=== PATIENT | female | born 1945 | race Caucasian/White ===

== ENCOUNTER 2020-08-02 14:41 | Emergency (ER) | payer OTHER, SELFPAY ==
[2020-08-02 14:55] VITALS: BP 131/69; PULSE 75; RESP 13; O2SAT 98; BMI 23.0
--- NOTE | 2020-08-02 15:38 | DI.US.S_ITS ---
PROCEDURE: US PERIPH VENOUS LOW EXTREM RT INDICATIONS: rule out dvt,recent right hip dislocation TECHNIQUE: Real-time imaging, as well as color and pulse Doppler interrogation, were performed of the lower extremity deep veins from the inguinal ligament to the popliteal fossa. COMPARISON: None. FINDINGS: The common femoral, femoral and popliteal veins are normally compressible, and free of intraluminal thrombus. Color and pulse Doppler demonstrate normal phasic intraluminal flow. There is normal augmentation response to distal compression maneuver. IMPRESSION: No DVT found. Dictated by: Christiano Braxton M.D. on 08/02/2020 at 16:52 Approved by: Christiano Braxton M.D. on 08/02/2020 at 16:53
--- NOTE | 2020-08-02 16:20 | ED.EXTPRO ---
HPI - Extremity Problem <MICHELLE Duggan - Last Filed: 08/02/20 20:53> General Chief complaint: Extremity Problem,Nontraumatic Stated complaint: suspected blood clot rt leg Time Seen by Provider: 08/02/20 15:32 Source: patient Mode of arrival: Ambulatory Limitations: no limitations History of Present Illness HPI Narrative: 75-year-old female with a history of back surgeries and a DVT, presents to the emergency department for right lower leg swelling. She states approximately a week ago she suffered a right hip dislocation, the hip was relocated at [facility] in [place], a knee brace was placed on her knee to help prevent hip dislocation. Patient had a physical therapy appointment yesterday and the brace was removed, she noticed some swelling below the area of the brace. Patient did have intermittent calf pain earlier today which has now resolved. She states her providers were concerned for a DVT. Patient denies any other symptoms such as chest pain, shortness of breath, dizziness, nausea, vomiting, diarrhea, further trauma to the leg, redness, or any other concerns. Related Data Previous Rx's Medication Instructions Recorded warfarin [Coumadin] 5 mg PO QDAY #90 tab 09/12/16 hydroxyzine HCl 25 mg PO SEE INSTRUCTIONS #60 tab 09/24/16 tramadol 0 mg PO BID PRN #60 tab 09/24/16 levothyroxine 50 mcg PO QAM #90 tab 10/07/16 lidocaine [Lidoderm] 5 ea TP SEE INSTRUCTIONS #30 patch 10/07/16 lithium carbonate 300 mg PO BID #180 tab 10/07/16 triamterene-hydrochlorothiazid 1 cap PO QDAY #30 cap 10/07/16 [Dyazide] prednisone 5 mg PO QDAY #30 tab 10/08/16 potassium chloride [K-Tab] 20 meq PO QDAY #90 tab 10/29/16 Allergies Allergy/AdvReac Type Severity Reaction Status Date / Time No Known Drug Allergies Allergy Verified 08/02/20 15:02 Review of Systems <MICHELLE Duggan - Last Filed: 08/02/20 20:53> Review of Systems Narrative: REVIEW OF SYSTEMS: GENERAL: Denies fever or chills. HENT: No head trauma. CARDIOVASCULAR: No chest pain or syncope. RESPIRATORY: No shortness of breath or cough. GASTROINTESTINAL: No nausea, vomiting, diarrhea, or constipation. MUSCULOSKELETAL: Complains of right leg swelling, see HPI. INTEGUMENTARY: No rash, lesions, or pruritus. NEURO: No numbness, tingling. PSYCH: No behavior or mood changes. Patient History <MICHELLE Duggan - Last Filed: 08/02/20 20:53> Medical History No significant medical problems (Acute) Social History Smoking Status: Unknown if ever smoked Smoking Status: Unknown if ever smoked alcohol intake frequency: holidays/special occasions only Substance Use Type: does not use Exam <MICHELLE Duggan - Last Filed: 08/02/20 20:53> Initial Vital Signs Initial Vital Signs: Vital Signs Pulse Rate 75 08/02/20 14:55 Respiratory Rate 13 08/02/20 14:55 Blood Pressure 131/69 08/02/20 14:55 Pulse Oximetry 98 08/02/20 14:55 PHYSICAL EXAMINATION: GENERAL: Well groomed, alert, and cooperative. Answers questions promptly and appropriately. Vital signs noted. HENT: Normocephalic, atraumatic. EYES: Symmetrical, sclera white, no periorbital swelling. CARDIOVASCULAR: Regular rate. RESPIRATORY: Normal respiratory rate, trachea midline, airway patent. No stridor, nasal flaring or accessory muscle use. MUSCULOSKELETAL: Slight increased swelling noted to right lower ankle, no pain with palpation to hip, knee, or ankle. Negative Homans sign. No pain with palpation to calf. Normal gait and coordination. Equal tone and mass bilaterally. To healing wounds noted to lower ankle, no surrounding erythema or signs of infection. EXTREMITIES: CMS intact. No pedal edema. SKIN: Warm, dry, soft, appropriate color for ethnicity. No lesions, rashes, or wounds. NEURO: Alert and Oriented X 3. No sensory deficits. PSYCH: Appropriate affect and mood. <Reed Olguin MD - Last Filed: 08/04/20 07:56> Initial Vital Signs Initial Vital Signs: Vital Signs Pulse Rate 75 08/02/20 14:55 Respiratory Rate 13 08/02/20 14:55 Blood Pressure 131/69 08/02/20 14:55 Pulse Oximetry 98 08/02/20 14:55 Course <MICHELLE Duggan - Last Filed: 08/02/20 20:53> Orders Ordered: ED Orders 08/02/20 15:38 US periph venous low extrem rt Stat 08/02/20 16:06 D Dimer Stat Vital Signs Vital signs: Vital Signs - 8 hr 08/02/20 14:55 08/02/20 17:12 Pulse Rate 75 84 Respiratory Rate 13 14 Blood Pressure 131/69 152/74 H Pulse Oximetry 98 97 <Reed Olguin MD - Last Filed: 08/04/20 07:56> Orders Ordered: ED Orders 08/02/20 15:38 US periph venous low extrem rt Stat 08/02/20 16:06 D Dimer Stat Vital Signs Vital signs: Vital Signs - 8 hr 08/02/20 14:55 08/02/20 17:12 Pulse Rate 75 84 Respiratory Rate 13 14 Blood Pressure 131/69 152/74 H Pulse Oximetry 98 97 MDM - Extremity (Nontraumatic) <MICHELLE Duggan - Last Filed: 08/02/20 20:53> Medical Records Attestation: I reviewed the patient's medical records. Lab Data Attestation: I reviewed the patient's lab results. Labs: Lab Results 08/02/20 Range/Units 16:06 D-Dimer 479 H (<230) ng/mL Imaging Data US - DVT: Radiologist's Impression: [place] [address] Ultrasound Report Signed Patient: Suly Manning BMR#: [id number] : 5Acct:[id number] Age/Sex: 75 / FDate of Service: 08/02/20 Loc: ED Accession Number: [id number] Procedure: US periph venous low extrem rt Ordering Provider: Karina Levine PROCEDURE: US PERIPH VENOUS LOW EXTREM RT INDICATIONS: rule out dvt,recent right hip dislocation TECHNIQUE: Real-time imaging, as well as color and pulse Doppler interrogation, were performed of the lower extremity deep veins from the inguinal ligament to the popliteal fossa. COMPARISON: None. FINDINGS: The common femoral, femoral and popliteal veins are normally compressible, and free of intraluminal thrombus. Color and pulse Doppler demonstrate normal phasic intraluminal flow. There is normal augmentation response to distal compression maneuver. IMPRESSION: No DVT found. Dictated by: Christiano Braxton M.D. on 08/02/2020 at 16:52 Approved by: Christiano Braxton M.D. on 08/02/2020 at 16:53 [facility] Narrative Medical decision making narrative: 75-year-old female presents to the emergency department for right leg swelling after right hip dislocation and reduction approximately week ago. Patient has a history of DVT. I suspect slight swelling is most likely caused by recent dislocation and recent physical therapy most likely increasing inflammation and therefore increasing dependent swelling. Less likely DVT given negative ultrasound. However, I recommended follow-up with PCP his D-dimer was elevated an ultrasound was negative, we discussed that sometimes ultrasound is repeated within a week. Additionally, exam is reassuring as calf was not tender. Return precautions given for new or worsening symptoms. Patient denied any other concerning symptoms such as shortness of breath or cough. Patient was hemodynamically stable. Patient agreed to plan of care verbalized understanding. <Reed Olguin MD - Last Filed: 08/04/20 07:56> Lab Data Labs: Lab Results 08/02/20 Range/Units 16:06 D-Dimer 479 H (<230) ng/mL Discharge Plan Departure Patient Disposition: Home Clinical Impression: Leg swelling Discharge Date/Time: 08/02/20 17:14 Activity Restrictions/Additional Instructions: Thank you for entrusting me with your care today. As discussed, your ultrasound was negative for any DVTs, your laboratory work such as your D-dimer was slightly elevated. I suspect her swelling may be related to your hip dislocation and recent physical therapy Follow-up with your primary care provider in 1 week, they may repeat your ultrasound at this time. Elevate your leg when at rest to reduce swelling. Return emergency department for any new or worsening symptoms. Prescriptions: No Action warfarin [Coumadin] 5 MG tablet 5 mg PO QDAY Qty: 90 RF: 3 tramadol 50 MG tablet 0 mg PO BID PRNQty: 60 RF: 0 hydroxyzine HCl 25 MG tablet 25 mg PO SEE INSTRUCTIONS Qty: 60 RF: 0 lidocaine [Lidoderm] 700 MG adhesive patch,medicated 5 ea TP SEE INSTRUCTIONS Qty: 30 RF: 2 triamterene-hydrochlorothiazid [Dyazide] 37.5 MG/25 MG capsule 1 cap PO QDAY Qty: 30 RF: 0 lithium carbonate 300 MG tablet 300 mg PO BID Qty: 180 RF: 0 levothyroxine 50 MCG tablet 50 mcg PO QAM Qty: 90 RF: 3 prednisone 5 MG tablet 5 mg PO QDAY Qty: 30 RF: 0 potassium chloride [K-Tab] 20 MEQ tablet extended release 20 meq PO QDAY Qty: 90 RF: 3 Referrals: Chano Watson MD [Primary Care Provider] - <Reed Olguin MD - Last Filed: 08/04/20 07:56> Cosign ED Attending Cosignature Attestation: I was immediately available in the department for consultation. This documentation has been reviewed and I agree with assessment and plan. Supervised by Reed Olguin MD
[2020-08-02 16:25] LABS: D Dimer 479 ng/mL (<230)
[2020-08-02 17:12] VITALS: BP 152/74; PULSE 84; RESP 14; O2SAT 97
== END 2020-08-02 17:14 | disposition home or self-care (01) ==
PROVIDERS: Emergency Provider Nurse Practitioner; Family Provider Family Medicine; PCP Family Medicine
DX: M79.89 Other specified soft tissue disorders (principal); R79.89 Other specified abnormal findings of blood chemistry
CPT/HCPCS: 36415; 85379; 93971; 99283; 99284